=== PATIENT | female | born 1935 | race Caucasian/White ===

== ENCOUNTER 2017-01-01 10:34 | Emergency (ER) | payer OTHER, MEDICARE ==
[~2017-01-01] VITALS: Ht 149.9 cm; Wt 51.7 kg
[~2017-01-01 10:34] MED LIST: ADVAIR 250/501 DISK IH; ALAWAY10 ML BOTH EYES; BIOFREEZE TP; BIOTIN2500 MCG PO; CARDIZEM CD,CA180 MG PO; CARDIZEM CD120 MG PO; CARDIZEM CD360 MG PO; CENTRUM SILVER1 EAC3 PO; CITRACAL + D E1 EACH PO; COMBIVENT RESPIM4 GM IH; COZAAR100 MG PO; CYCLOBENZAPRINE5 MG PO; DIGITEK125 MC2 PO; DIGOX125 MCG PO; ERGOCALCIF50000 UNIT PO; FLEXERIL5 MG PO; HARD NAILS2500 MCG PO; HYDROCHLOROTHIA25 MG PO; KLOR-CON-EF 2525 MEQ PO; LASIX20 MG PO; LORCET 5-325 M1 EACH PO; METANX CAPSULE1 EACH PO; METHOTREXATE2.5 MG PO; METOCLOPRAMIDE H5 MG PO; METOPROLOL SUCC25 MG PO; METRONIDAZOLE500 MG PO; MYLICON,MYLANTA80 MG PO; PREVACID30 MG PO; REGLAN5 MG PO; REMICADE10 MG/ML IV; SINGULAIR10 MG PO; SOOTHE LUBRICA1 EACH BOTH EYES; TOPROL XL25 MG PO; ULTRAM50 MG PO; VALSARTAN160 MG PO; VITAMIN D250000 UNIT PO; remicade IV
[2017-01-01 11:11] LABS: EOSINOPHIL (%) 1.1 % (0-5); EOSINOPHIL COUNT 0.1 K/uL (0-0.3); HEMATOCRIT 43.2 % (36.0-46.0); IMMATURE GRANULOCYTE (%) 0.2 % (0.0-0.7); INSTRUMENT ABS NEUTROPHIL CT 2.6 K/uL; LYMPHOCYTE COUNT 2.5 K/uL (1.0-2.8); MCH 30.8 PG (29.0-34.0); MCHC 34.5 G/DL (30.0-36.0); MEAN PLAT.VOLUME 10.9 uM^3 (9.5-12.4); MONOCYTE (%) 6.6 % (3-12); MONOCYTE COUNT 0.4 K/uL (0-0.8); NEUTROPHIL (%) 46.7 % (45-76); NEUTROPHIL COUNT 2.6 K/uL (1.8-6.4); PLATELET COUNT 166 K/uL (156-360); RBC DIS.WIDTH-CV 13.1 % (11.8-14.6); RBC DIS.WIDTH-SD 42.5 % (39-53); RED BLOOD COUNT 4.84 M/uL (3.80-5.20); WHITE BLOOD COUNT 5.6 K/uL (4.1-10.2)
[2017-01-01 11:12] LABS: MCV 89.3 FL (83-99)
[2017-01-01 11:22] LABS: CHLORIDE 99 mEq/L (99-109); SODIUM 133 mEq/L (136-147)
[2017-01-01 11:24] LABS: GLUCOSE 106 mg/dL (70-99)
[2017-01-01 11:25] LABS: ANION GAP 9 MEQ/L (2-14)
[2017-01-01 11:28] LABS: GFR ESTIMATE (CALCULATED) > 59 mL/min/
[2017-01-01 11:29] LABS: UREA NITROGEN (BUN) 9 mg/dL (9-23)
[2017-01-01 12:51] LABS: ADD MIUA? NO; BILIRUBIN NEGATIVE; BLOOD NEGATIVE; COLOR STRAW ((YELLOW)); GLUCOSE (STRIP) NEGATIVE; KETONES 5; LEUKOCYTES NEGATIVE; NITRITE NEGATIVE; PROTEIN (STRIP) NEGATIVE; SPECIFIC GRAVITY 1.006 (1.000-1.030); UROBILINOGEN 0.2 MG/DL (0.2-1.0)
[2017-01-01] MEDS ORDERED: BENTYL20 MG PO (13:31)
[2017-01-01] MEDS ORDERED: ZOFRAN ODT4 MG PO (13:31)
[2017-01-01 14:51] VITALS: BP 140/86
== END 2017-01-01 14:54 ==
LOC: EME 10:34
PROVIDERS: Emergency Medicine
DX: R10.32 Left lower quadrant pain (principal); R19.7 Diarrhea, unspecified; I10 Essential (primary) hypertension; K21.9 Gastro-esophageal reflux disease without esophagitis
CPT/HCPCS: 74177; 80048; 81003; 85025; 87493; 99281; 99285; J7030